=== PATIENT | male | born 1970 | race African-American/Black ===

== ENCOUNTER 2020-01-06 17:28 | Inpatient (IN) | payer MEDICAID ==
[~2020-01-06] VITALS: Ht 188 cm; Wt 87.7 kg
[2020-01-06] MEDS ORDERED: DICL75TA5 PO (17:36)
[2020-01-06] MEDS ORDERED: COLC0.6T73 PO (17:36)
[2020-01-06] MEDS ORDERED: CEPH-582 PO (17:36)
[2020-01-06] MEDS ORDERED: MUPI1OIN5 TP (17:36)
[2020-01-06] MEDS ORDERED: ALLO300 PO (17:36)
[2020-01-06] MEDS ORDERED: LISI-661 PO (17:36)
[2020-01-06] MEDS ORDERED: METF-960 PO (17:36)
[2020-01-06] MEDS ORDERED: BACTDSB PO (17:36)
[2020-01-06 18:57] LABS: GLUCOSE,POINT OF CARE 266 MG/DL (70-110)
[2020-01-06 19:32] LABS: BASOPHILS % (AUTO) 0.9 % (0.0-2.0); EOSINOPHILS % (AUTO) 5.3 % (1.0-6.0); HEMATOCRIT 47.4 % (41-53); HEMOGLOBIN 15.8 g/dL (13.5-17.5); LYMPHOCYTES # (AUTO) 2.8 K/uL (1.0-4.8); LYMPHOCYTES % (AUTO) 28.2 % (22.0-44.0); MEAN CORPUSCULAR HEMOGLOBIN 28.7 pg (26.0-34.0); MEAN CORPUSCULAR HGB CONC 33.2 G/dL (31.0-37.0); MEAN CORPUSCULAR VOLUME 87 fL (80-100); MONOCYTES # (AUTO) 0.5 K/uL (0.1-1.0); MONOCYTES % (AUTO) 5.1 % (2.0-9.0); NEUTROPHILS # (AUTO) 6.1 K/uL (1.8-7.7); NEUTROPHILS % (AUTO) 60.5 % (40.0-70.0); PLATELET COUNT (AUTO) 221 K/uL (150-450); RED BLOOD CELL COUNT(AUTO) 5.49 MIL/uL (4.50-5.90); RED CELL DISTRIBUTION WIDTH 15.3 % (11.5-14.5)
[2020-01-06 19:43] LABS: ANION GAP 12 mmol/L (8-16); CALCIUM, TOTAL 9.5 mg/dL (8.8-10.5); CARBON DIOXIDE 26 mmol/L (22-29); CHLORIDE 97 mmol/L (98-107); GLOMERULAR FILTR. RATE CALC > 60 mL/min (>60); GLUCOSE,RANDOM 255 mg/dL (70-110); POTASSIUM 4.5 mmol/L (3.5-5.1); SODIUM SERUM 135 mmol/L (136-145); UREA NITROGEN, BLOOD 15 mg/dL (7-18)
[2020-01-06] MEDS ORDERED: DEXTROSE 50%-WATER 25 GM/50 ML SYRINGE IVP PRN (19:45)
[2020-01-06 19:49] LABS: ALANINE AMINOTRANSFERASE 38 U/L (12-78); ALBUMIN 4.5 g/dL (3.4-5.0); ALKALINE PHOSPHATASE 89 U/L (46-116); ASPARTATE AMINOTRANSFERASE 19 U/L (15-37); BILIRUBIN,TOTAL 0.4 mg/dL (0.1-1.0); C-REACTIVE PROTEIN QUANT 0.35 mg/dL (0.00-0.30); TOTAL PROTEIN, SERUM 9.5 g/dL (6.4-8.2)
[2020-01-06] MEDS ORDERED: SODIUM CHLORIDE 0.9% 1,000 ML IV ONE ×2 (20:00→20:30)
[2020-01-06] MEDS ORDERED: VANCOMYCIN HCL 1.5 GM in DEXTROSE 5%-WATER 250 ML IV ONE (20:00)
[2020-01-06 20:09] LABS: URIC ACID 4.6 mg/dL (2.6-7.2)
[2020-01-06] MEDS ORDERED: ACETAMINOPHEN 325 MG TABLET PO PRN (20:15)
[2020-01-06] MEDS ORDERED: CloNIDine HCL 0.1 MG TABLET PO ONE (20:45)
[2020-01-06] MEDS: DOCUSATE SODIUM 100 MG CAPSULE PO SCH (20:47)
[2020-01-06 20:51] LABS: ERYTHROCYTE SEDIMENTATION RATE 4 MM/HR (0-15)
[2020-01-06 22:30] VITALS: BP 149/106
[2020-01-06] MEDS: HEPARIN SODIUM,PORCINE 5,000 UNITS/ML VIAL SQ SCH (22:54)
[2020-01-06] MEDS: LOSARTAN POTASSIUM 25 MG TABLET PO SCH (22:55)
[2020-01-06] MEDS: INSULIN LISPRO 100 UNITS/ML SQ PRN (22:58)
[2020-01-07 00:25] VITALS: BP 136/92
[2020-01-07 03:58] LABS: GLUCOMETER DEV NAME(LOC) 6N.2; GLUCOSE,POINT OF CARE 268 MG/DL (70-110)
[2020-01-07 04:00] VITALS: BP 144/97
[2020-01-07] MEDS ORDERED: PNEUMOCOCCAL VACCINE POLYVALENT 0.5 ML VIAL [PPSV23] IM ONE (04:45)
[2020-01-07] MEDS: HYDROCODONE/ACETAMINOPHEN 5-325 MG TABLET PO PRN (05:03)
[2020-01-07] MEDS: INSULIN LISPRO 100 UNITS/ML SQ PRN ×4 (05:05→20:41)
[2020-01-07] MEDS ORDERED: VANCOMYCIN HCL 1 GM/D5% WATER 200 ML IV SCH (08:00)
[2020-01-07] MEDS: LOSARTAN POTASSIUM 25 MG TABLET PO SCH ×2 (08:08→20:33)
[2020-01-07] MEDS: DOCUSATE SODIUM 100 MG CAPSULE PO SCH (08:08)
[2020-01-07] MEDS: HEPARIN SODIUM,PORCINE 5,000 UNITS/ML VIAL SQ SCH (08:10)
[2020-01-07 08:48] VITALS: BP 134/93
[2020-01-07 08:57] LABS: ANION GAP 10 mmol/L (8-16); CALCIUM, TOTAL 8.6 mg/dL (8.8-10.5); CARBON DIOXIDE 24 mmol/L (22-29); CHLORIDE 103 mmol/L (98-107); CREATININE 1.03 mg/dL (0.60-1.30); GLOMERULAR FILTR. RATE CALC > 60 mL/min (>60); GLUCOSE,RANDOM 202 mg/dL (70-110); POTASSIUM 4.2 mmol/L (3.5-5.1); SODIUM SERUM 137 mmol/L (136-145); UREA NITROGEN, BLOOD 13 mg/dL (7-18)
[2020-01-07] MEDS ORDERED: FAMOTIDINE 20 MG TABLET PO SCH (09:00)
[2020-01-07] MEDS ORDERED: DOCUSATE SODIUM 100 MG CAPSULE PO PRN (09:30)
[2020-01-07 09:51] LABS: BASOPHILS % (AUTO) 0.4 % (0.0-2.0); EOSINOPHILS % (AUTO) 7.5 % (1.0-6.0); HEMATOCRIT 42.6 % (41-53); HEMOGLOBIN 13.8 g/dL (13.5-17.5); LYMPHOCYTES # (AUTO) 2.7 K/uL (1.0-4.8); LYMPHOCYTES % (AUTO) 29.6 % (22.0-44.0); MEAN CORPUSCULAR HEMOGLOBIN 28.2 pg (26.0-34.0); MEAN CORPUSCULAR HGB CONC 32.5 G/dL (31.0-37.0); MEAN CORPUSCULAR VOLUME 87 fL (80-100); MONOCYTES # (AUTO) 0.6 K/uL (0.1-1.0); MONOCYTES % (AUTO) 6.7 % (2.0-9.0); NEUTROPHILS % (AUTO) 55.8 % (40.0-70.0); PLATELET COUNT (AUTO) 185 K/uL (150-450)
[2020-01-07 11:25] LABS: GLUCOSE,POINT OF CARE 254 MG/DL (70-110)
[2020-01-07] MEDS: PIPERACILLIN/TAZO 3.375 GM/D5W 50 ML IV SCH ×3 (11:25→21:57)
[2020-01-07] MEDS: SODIUM CHLORIDE 0.9% 1,000 ML IV SCH ×2 (11:26→21:45)
[2020-01-07 12:37] LABS: GLUCOMETER DEV NAME(LOC) 6S.1; GLUCOSE,POINT OF CARE 206 MG/DL (70-110)
[2020-01-07 12:37] LABS: GLUCOMETER DEV NAME(LOC) 6S.1; GLUCOSE,POINT OF CARE 215 MG/DL (70-110)
[2020-01-07 15:47] VITALS: BP 133/96
[2020-01-07] MEDS: VANCOMYCIN HCL 1 GM/D5% WATER 200 ML IV SCH ×2 (16:39→23:48)
[2020-01-07 18:05] LABS: GLUCOMETER DEV NAME(LOC) 6S.1; GLUCOSE,POINT OF CARE 290 MG/DL (70-110)
[2020-01-07 20:05] VITALS: BP 139/96
[2020-01-07] MEDS: FAMOTIDINE 20 MG TABLET PO SCH (20:33)
[2020-01-08 00:24] VITALS: BP 137/91
[2020-01-08] MEDS: PIPERACILLIN/TAZO 3.375 GM/D5W 50 ML IV SCH ×4 (03:49→23:08)
[2020-01-08 04:18] VITALS: BP 145/78
[2020-01-08] MEDS: INSULIN LISPRO 100 UNITS/ML SQ PRN ×4 (04:30→20:35)
[2020-01-08 05:09] LABS: GLUCOMETER DEV NAME(LOC) 6S.1; GLUCOSE,POINT OF CARE 202 MG/DL (70-110)
[2020-01-08] MEDS ORDERED: RINGERS SOLUTION,LACTATED 1,000 ML IV ONE ×3 (05:30→07:20)
[2020-01-08 06:11] LABS: GLUCOMETER DEV NAME(LOC) 6N.2; GLUCOSE,POINT OF CARE 238 MG/DL (70-110)
[2020-01-08] MEDS ORDERED: LIDOCAINE/PF 1% 30 ML VIAL ONE (07:01)
[2020-01-08] MEDS ORDERED: BUPIVACAINE HCL/PF 0.25% 30 ML VIAL ONE (07:01)
[2020-01-08] MEDS ORDERED: SODIUM CHLORIDE 0.9% 1,000 ML ONE (07:02)
[2020-01-08] MEDS ORDERED: SODIUM CL IRRIG SOLN BAG 0 ML IRRIG ONE (07:02)
[2020-01-08] MEDS ORDERED: VANCOMYCIN HCL 1 GM/VIAL ONE (07:02)
[2020-01-08] MEDS ORDERED: BACITRACIN 50,000 UNITS/VIAL ONE (07:02)
[2020-01-08] MEDS ORDERED: BUPIVACAINE HCL/PF 0.5% 30 ML VIAL ONE (07:04)
[2020-01-08 07:12] LABS: BASOPHILS % (AUTO) 0.2 % (0.0-2.0); EOSINOPHILS % (AUTO) 8.4 % (1.0-6.0); HEMATOCRIT 46.2 % (41-53); LYMPHOCYTES # (AUTO) 2.8 K/uL (1.0-4.8); LYMPHOCYTES % (AUTO) 26.1 % (22.0-44.0); MEAN CORPUSCULAR HEMOGLOBIN 27.9 pg (26.0-34.0); MEAN CORPUSCULAR HGB CONC 32.3 G/dL (31.0-37.0); MEAN CORPUSCULAR VOLUME 86 fL (80-100); MONOCYTES # (AUTO) 0.7 K/uL (0.1-1.0); MONOCYTES % (AUTO) 6.4 % (2.0-9.0); NEUTROPHILS # (AUTO) 6.2 K/uL (1.8-7.7); NEUTROPHILS % (AUTO) 58.9 % (40.0-70.0); PLATELET COUNT (AUTO) 209 K/uL (150-450); RED BLOOD CELL COUNT(AUTO) 5.36 MIL/uL (4.50-5.90); RED CELL DISTRIBUTION WIDTH 14.9 % (11.5-14.5)
[2020-01-08] MEDS ORDERED: MEPERIDINE-PF 25 MG/ML VIAL IVP PRN (07:30)
[2020-01-08] MEDS ORDERED: HYDROmorphone 2 MG/ML SYRINGE IVP PRN (07:30)
[2020-01-08] MEDS ORDERED: FentaNYL CITRATE-PF 100 MCG/2 ML VIAL IVP PRN (07:30)
[2020-01-08 07:34] LABS: ANION GAP 9 mmol/L (8-16); CALCIUM, TOTAL 8.8 mg/dL (8.8-10.5); CARBON DIOXIDE 27 mmol/L (22-29); CHLORIDE 100 mmol/L (98-107); CREATININE 1.42 mg/dL (0.60-1.30); GLOMERULAR FILTR. RATE CALC > 60 mL/min (>60); GLUCOSE,RANDOM 202 mg/dL (70-110); POTASSIUM 4.3 mmol/L (3.5-5.1); SODIUM SERUM 136 mmol/L (136-145); UREA NITROGEN, BLOOD 14 mg/dL (7-18); VANCOMYCIN,RANDOM 15.6 mcg/mL (25.0-50.0)
[2020-01-08] MEDS: OXYGEN THERAPY IH SCH (08:00)
[2020-01-08] MEDS: SODIUM CHLORIDE 0.9% 1,000 ML IV SCH (09:02)
[2020-01-08] MEDS: LOSARTAN POTASSIUM 25 MG TABLET PO SCH ×2 (11:48→20:19)
[2020-01-08] MEDS: FAMOTIDINE 20 MG TABLET PO SCH ×2 (11:48→20:19)
[2020-01-08] MEDS: HYDROCODONE/ACETAMINOPHEN 5-325 MG TABLET PO PRN ×2 (11:53→17:56)
[2020-01-08 11:55] VITALS: BP 137/91
[2020-01-08 12:18] LABS: GLUCOMETER DEV NAME(LOC) 6N.2; GLUCOSE,POINT OF CARE 253 MG/DL (70-110)
[2020-01-08] MEDS: VANCOMYCIN HCL 1.5 GM in DEXTROSE 5%-WATER 250 ML IV SCH ×2 (15:46→23:49)
[2020-01-08 16:23] VITALS: BP 148/106
[2020-01-08 16:53] LABS: GLUCOMETER DEV NAME(LOC) 6N.2; GLUCOSE,POINT OF CARE 191 MG/DL (70-110)
[2020-01-08 19:55] VITALS: BP 148/98
[2020-01-09] VITALS (9 sets, daily range): BP systolic 129–161; BP diastolic 94–115
[2020-01-09] MEDS ORDERED: MIDAZOLAM HCL 2 MG/2 ML VIAL IVP ONE (01:19)
[2020-01-09] MEDS ORDERED: ONDANSETRON HCL 4 MG/2 ML VIAL IVP ONE (01:19)
[2020-01-09] MEDS ORDERED: PROPOFOL 1% 20 ML VIAL IVP ONE (01:19)
[2020-01-09] MEDS ORDERED: FentaNYL CITRATE-PF 100 MCG/2 ML VIAL IVP ONE (01:19)
[2020-01-09] MEDS: PIPERACILLIN/TAZO 3.375 GM/D5W 50 ML IV SCH ×4 (03:47→22:15)
[2020-01-09] MEDS: HYDROCODONE/ACETAMINOPHEN 5-325 MG TABLET PO PRN ×2 (04:16→20:40)
[2020-01-09 04:38] LABS: GLUCOMETER DEV NAME(LOC) 6S.1; GLUCOSE,POINT OF CARE 227 MG/DL (70-110)
[2020-01-09] MEDS: INSULIN LISPRO 100 UNITS/ML SQ PRN ×4 (06:35→20:36)
[2020-01-09 06:56] LABS: GLUCOMETER DEV NAME(LOC) 6N.1; GLUCOSE,POINT OF CARE 237 MG/DL (70-110)
[2020-01-09] MEDS: OXYGEN THERAPY IH SCH ×2 (08:00→20:00)
[2020-01-09] MEDS: LOSARTAN POTASSIUM 25 MG TABLET PO SCH (08:15)
[2020-01-09] MEDS: FAMOTIDINE 20 MG TABLET PO SCH ×2 (08:15→20:36)
[2020-01-09] MEDS: VANCOMYCIN HCL 1.5 GM in DEXTROSE 5%-WATER 250 ML IV SCH ×3 (08:15→23:17)
[2020-01-09 09:03] LABS: ANION GAP 10 mmol/L (8-16); CALCIUM, TOTAL 8.6 mg/dL (8.8-10.5); CARBON DIOXIDE 25 mmol/L (22-29); CHLORIDE 102 mmol/L (98-107); CREATININE 1.05 mg/dL (0.60-1.30); GLOMERULAR FILTR. RATE CALC > 60 mL/min (>60); GLUCOSE,RANDOM 215 mg/dL (70-110); POTASSIUM 4.1 mmol/L (3.5-5.1); SODIUM SERUM 137 mmol/L (136-145); UREA NITROGEN, BLOOD 12 mg/dL (7-18)
[2020-01-09] MEDS: SODIUM CHLORIDE 0.9% 1,000 ML IV SCH (11:13)
[2020-01-09 15:21] LABS: GLUCOMETER DEV NAME(LOC) 6N.1; GLUCOSE,POINT OF CARE 244 MG/DL (70-110)
[2020-01-09] MEDS ORDERED: LOSARTAN POTASSIUM 50 MG TABLET PO ONE (15:30)
[2020-01-09] MEDS ORDERED: CloNIDine HCL 0.1 MG TABLET PO PRN (16:15)
[2020-01-09 21:29] LABS: GLUCOMETER DEV NAME(LOC) 6N.1; GLUCOSE,POINT OF CARE 214 MG/DL (70-110)
[2020-01-09 21:29] LABS: GLUCOMETER DEV NAME(LOC) 6N.1; GLUCOSE,POINT OF CARE 219 MG/DL (70-110)
[2020-01-10 03:50] VITALS: BP 147/96
[2020-01-10] MEDS: PIPERACILLIN/TAZO 3.375 GM/D5W 50 ML IV SCH ×3 (04:13→16:00)
[2020-01-10] MEDS: INSULIN LISPRO 100 UNITS/ML SQ PRN ×2 (06:10→12:15)
[2020-01-10 07:35] LABS: GLUCOMETER DEV NAME(LOC) 6N.1; GLUCOSE,POINT OF CARE 202 MG/DL (70-110)
[2020-01-10 08:04] VITALS: BP 162/104
[2020-01-10] MEDS: HYDROCODONE/ACETAMINOPHEN 5-325 MG TABLET PO PRN ×2 (08:51→16:52)
[2020-01-10] MEDS: VANCOMYCIN HCL 1.5 GM in DEXTROSE 5%-WATER 250 ML IV SCH ×2 (08:52→16:00)
[2020-01-10] MEDS: FAMOTIDINE 20 MG TABLET PO SCH (08:53)
[2020-01-10] MEDS ORDERED: LOSARTAN POTASSIUM 50 MG TABLET PO SCH ×2 (09:00)
[2020-01-10 09:19] LABS: ANION GAP 12 mmol/L (8-16); CALCIUM, TOTAL 8.9 mg/dL (8.8-10.5); CARBON DIOXIDE 25 mmol/L (22-29); CHLORIDE 101 mmol/L (98-107); CREATININE 1.04 mg/dL (0.60-1.30); GLOMERULAR FILTR. RATE CALC > 60 mL/min (>60); GLUCOSE,RANDOM 225 mg/dL (70-110); POTASSIUM 3.9 mmol/L (3.5-5.1); SODIUM SERUM 138 mmol/L (136-145); UREA NITROGEN, BLOOD 12 mg/dL (7-18)
[2020-01-10 12:00] VITALS: BP 162/106
[2020-01-10] MEDS ORDERED: AmLODIPine BESYLATE 10 MG TABLET PO ONE (13:45)
[2020-01-10] MEDS ORDERED: AMOX-429 PO (14:29)
[2020-01-10] MEDS ORDERED: DOXYCYCLINE PO (14:29)
[2020-01-10] MEDS ORDERED: AMLO10TA7 PO (14:33)
[2020-01-10] MEDS ORDERED: LOSARTAN PO (14:33)
[2020-01-10 17:58] LABS: GLUCOMETER DEV NAME(LOC) 6N.1; GLUCOSE,POINT OF CARE 281 MG/DL (70-110)
[2020-01-11] MEDS ORDERED: AmLODIPine BESYLATE 10 MG TABLET PO SCH (09:00)
== END 2020-01-10 17:10 | disposition home or self-care (01) | DRG 314 ==
LOC: EMS 17:28 → 6N 20:07 → 4E 01-09 04:41
PROVIDERS: ADMIT Internal Medicine; ATTEND Internal Medicine
PROC: 3E0234Z Introduction of Serum, Toxoid and Vaccine into Muscle, Percutaneous Approach (ICD-10-PCS; 2020-01-07)
PROC: 0Y6P0Z3 Detachment at Right 1st Toe, Low, Open Approach (ICD-10-PCS; principal; 2020-01-08 09:00)
DX: E11.69 Type 2 diabetes mellitus with other specified complication (principal); E11.65 Type 2 diabetes mellitus with hyperglycemia; E11.51 Type 2 diabetes mellitus with diabetic peripheral angiopathy without gangrene; I10 Essential (primary) hypertension; M10.9 Gout, unspecified; I73.9 Peripheral vascular disease, unspecified; I25.10 Atherosclerotic heart disease of native coronary artery without angina pectoris; E11.621 Type 2 diabetes mellitus with foot ulcer; M86.8X7 Other osteomyelitis, ankle and foot; Z82.49 Family history of ischemic heart disease and other diseases of the circulatory system; Z83.3 Family history of diabetes mellitus; Z79.891 Long term (current) use of opiate analgesic; Z79.899 Other long term (current) drug therapy; Z79.01 Long term (current) use of anticoagulants; Z79.1 Long term (current) use of non-steroidal anti-inflammatories (NSAID); Z79.84 Long term (current) use of oral hypoglycemic drugs; Z03.818 Encounter for observation for suspected exposure to other biological agents ruled out; Z23 Encounter for immunization
CPT/HCPCS: 84145; 84550; 85651; 86140; 87040; 87070; 87081; 87205; 88305; 88311; 93925; G0378; J0690; J1644; J2250; J2405; J2543; J2704; J3010; J3370; J3490; J7030; J7060; J7120

== ENCOUNTER 2021-12-04 19:03 | Emergency (ER) | payer OTHER ==
[~2021-12-04] VITALS: Ht 167.6 cm; Wt 81.8 kg
[~2021-12-04 19:03] MED LIST: ALLO-45 PO; AMLO-258 PO; AMOX-429 PO; BACTDSB PO; CEPH-582 PO; COLC0.6T73 PO; DICL75TA5 PO; DOXYCYCLINE PO; LISI-893 PO; LOSARTAN PO; METF-1211 PO; MUPI1OIN5 TP
[2021-12-04] MEDS ORDERED: ONDANSETRON HCL 4 MG TABLET PO ONE (19:30)
[2021-12-04 21:00] VITALS: BP 135/84
== END 2021-12-04 21:25 | disposition home or self-care (01) ==
LOC: EMS 19:03
DX: T16.2XXA Foreign body in left ear, initial encounter (principal); E11.9 Type 2 diabetes mellitus without complications; I10 Essential (primary) hypertension; M10.9 Gout, unspecified; Z87.898 Personal history of other specified conditions; Z98.890 Other specified postprocedural states; X58.XXXA Exposure to other specified factors, initial encounter; Y93.89 Activity, other specified; Y92.89 Other specified places as the place of occurrence of the external cause; Y99.8 Other external cause status
CPT/HCPCS: 99284; Q0162